=== PATIENT | female | born 1975 | race African-American/Black ===

== ENCOUNTER 2016-11-21 13:39 | Outpatient (CLI) | payer BC ==
--- NOTE | 2016-11-21 14:15 | Mammography Report ---
Bilateral mammogram: Compared to 11/23/15. CAD study utilized. Findings: Heterogeneous breast parenchyma bilaterally. No mass or microcalcification. Benign calcifications. Benign axillary nodes. Impression: Benign findings. Annual followup recommended. BI-RADS CATEGORY: 2 = Benign ACR BI-RADS MAMMOGRAPHIC CODES: 0 = Needs additional imaging evaluation; 1 = Negative; 2 = Benign; 3 = Probably benign; 4 = Suspicious; 5 = Malignant; 6 = Known biopsy-proven malignancy COMMENT: 1. Dense breast tissue, i.e., adenosis, fibrocystic changes, etc., may obscure an underlying neoplasm. 2. Approximately 10% of cancers are not detected with mammography. 3. A negative mammography report should not delay biopsy if a clinically suspicious mass is present. COMMENT: Patient follow-up letters are generated in [employer].
== END 2016-11-21 13:40 | disposition home or self-care (01) ==
LOC: MAMMO 13:39
PROVIDERS: ATTEND Surgery
DX: Z12.31 Encounter for screening mammogram for malignant neoplasm of breast (principal)
CPT/HCPCS: 77067; G0202

== ENCOUNTER 2017-05-05 16:54 | Outpatient (CLI) | payer BC | END 2017-05-05 16:55 | disposition home or self-care (01) | LOC: CARD 16:54 | PROVIDERS: ATTEND Internal Medicine | DX: Z00.01 Encounter for general adult medical examination with abnormal findings (principal); R07.9 Chest pain, unspecified | CPT/HCPCS: 93005; 93010 ==

== ENCOUNTER 2017-11-08 15:27 | Outpatient (CLI) | payer BC | END 2017-11-08 15:28 | disposition home or self-care (01) | LOC: CARD 15:27 | PROVIDERS: ATTEND Internal Medicine | DX: R07.9 Chest pain, unspecified (principal) | CPT/HCPCS: 93005; 93010 ==

== ENCOUNTER 2017-11-22 14:25 | Outpatient (CLI) | payer BC ==
--- NOTE | 2017-11-22 15:28 | Mammography Report ---
BILATERAL MAMMOGRAM: FINDINGS: The breast tissue is heterogeneously dense, which could obscure detection of small masses (approximately 50%-75% glandular). No mass, distortion, suspicious calcification, or skin change is seen. No interval change when compared to prior exam in October 2016. CAD was utilized. IMPRESSION: Negative mammogram. There is no mammographic evidence of malignancy. RECOMMENDATION: Follow-up per ACS guidelines. BI-RADS CATEGORY: 1 = Negative ACR BI-RADS MAMMOGRAPHIC CODES: 0 = Needs additional imaging evaluation; 1 = Negative; 2 = Benign; 3 = Probably benign; 4 = Suspicious; 5 = Malignant; 6 = Known biopsy-proven malignancy COMMENT: 1. Dense breast tissue, i.e., adenosis, fibrocystic changes, etc., may obscure an underlying neoplasm. 2. Approximately 10% of cancers are not detected with mammography. 3. A negative mammography report should not delay biopsy if a clinically suspicious mass is present. COMMENT: Patient follow-up letters are generated in [employer].
== END 2017-11-22 14:26 | disposition home or self-care (01) ==
LOC: MAMMO 14:25
PROVIDERS: ATTEND Obstetrics & Gynecology
DX: Z12.31 Encounter for screening mammogram for malignant neoplasm of breast (principal)
CPT/HCPCS: 77067

== ENCOUNTER 2017-12-06 07:01 | Outpatient (CLI) | payer BC ==
--- NOTE | 2017-12-06 10:26 | Treadmill Report ---
INDICATION: Chest pain. ORDERING PHYSICIAN: Mitchel Strong MD After obtaining written consent, the patient was brought to the stress lab area. The patient underwent a treadmill stress [place] protocol without complications. The patient exercised for 10 minutes without any evidence of ischemic EKG changes. There was no report of limiting chest pain or shortness of breath. The Jorge treadmill score is +10 indicating a low risk treadmill stress test, associated with an adverse cardiovascular events rate of less than 1% in the next 1 year. The patient did achieve 100% of her maximal age predicted heart rate. CONCLUSION: This is a normal treadmill stress test. JOB# [id number] ANDREA/GERARDO
== END 2017-12-06 07:02 | disposition home or self-care (01) ==
LOC: CARD 07:01
PROVIDERS: ATTEND Internal Medicine
DX: R07.2 Precordial pain (principal)
CPT/HCPCS: 93017

== ENCOUNTER 2018-11-28 13:17 | Outpatient (CLI) | payer BC ==
--- NOTE | 2018-11-28 14:21 | Mammography Report ---
BILATERAL MAMMOGRAM: FINDINGS: The breast tissue is heterogeneously dense, which could obscure detection of small masses (approximately 50%-75% glandular). No mass, distortion, suspicious calcification, or skin change is seen. No significant changes when compared to prior exams dating back to October 2016. CAD was utilized. IMPRESSION: Negative mammogram. There is no mammographic evidence of malignancy. RECOMMENDATION: Follow-up per ACS guidelines. BI-RADS CATEGORY: 1 = Negative ACR BI-RADS MAMMOGRAPHIC CODES: 0 = Needs additional imaging evaluation; 1 = Negative; 2 = Benign; 3 = Probably benign; 4 = Suspicious; 5 = Malignant; 6 = Known biopsy-proven malignancy COMMENT: 1. Dense breast tissue, i.e., adenosis, fibrocystic changes, etc., may obscure an underlying neoplasm. 2. Approximately 10% of cancers are not detected with mammography. 3. A negative mammography report should not delay biopsy if a clinically suspicious mass is present. COMMENT: Patient follow-up letters are generated in [employer].
== END 2018-11-28 13:18 | disposition home or self-care (01) ==
LOC: MAMMO 13:17
PROVIDERS: ATTEND Obstetrics & Gynecology
DX: Z12.31 Encounter for screening mammogram for malignant neoplasm of breast (principal)
CPT/HCPCS: 77067

== ENCOUNTER 2019-01-18 08:47 | Outpatient (CLI) | payer BC ==
--- NOTE | 2019-01-18 10:05 | Mammography Report ---
RIGHT DIGITAL DIAGNOSTIC MAMMOGRAM with CAD and RIGHT BREAST ULTRASOUND: 01/18/19 08:47:00 CLINICAL: A recent right palpable breast lump which has appeared since her recent screening mammogram. The patient states that it is less prominent than when she first felt it. COMPARISON:11/28/18 screening mammogram FINDINGS: The breast is heterogeneously dense, which may obscure small masses.No mass, architectural distortion or suspicious calcifications. No mammographic finding at a palpable marker at 6 o'clock near the nipple. Targeted ultrasound of the right breast in the area of the palpable marker demonstrated normal fibroglandular structures with no mass, cyst or shadowing. IMPRESSION: Negative mammogram and negative targeted right breast ultrasound. BI-RADS CATEGORY: 1 - - Negative RECOMMENDATION: Clinical followup and routine mammographic screening in one year. ACR BI-RADS MAMMOGRAPHIC CODES: 0 = Needs additional imaging evaluation; 1 = Negative; 2 = Benign; 3 = Probably benign; 4 = Suspicious; 5 = Malignant; 6 = Known biopsy-proven malignancy COMMENT: 1. Dense breast tissue, i.e., adenosis, fibrocystic changes, etc., may obscure an underlying neoplasm. 2. Approximately 10% of cancers are not detected with mammography. 3. A negative mammography report should not delay biopsy if a clinically suspicious mass is present. COMMENT: Patient follow-up letters are generated by our [employer] application.
== END 2019-01-18 08:48 | disposition home or self-care (01) ==
LOC: MAMMO 08:47
PROVIDERS: ATTEND Obstetrics & Gynecology
DX: N63.13 Unspecified lump in the right breast, lower outer quadrant (principal)

== ENCOUNTER 2019-06-10 14:06 | Emergency (ER) | payer BC | END 2019-06-10 14:10 | disposition left against medical advice (07) | LOC: ED 14:06 | DX: R50.9 Fever, unspecified (principal); Z53.21 Procedure and treatment not carried out due to patient leaving prior to being seen by health care provider ==

== ENCOUNTER 2019-12-09 14:07 | Outpatient (CLI) | payer BC ==
--- NOTE | 2019-12-09 16:08 | Mammography Report ---
DIGITAL SCREENING MAMMOGRAM WITH CAD, 12/09/2019 INDICATION: Routine screening mammography. TECHNIQUE: Digital bilateral 2D mammography was obtained in the craniocaudal and mediolateral obliq ue projections. This examination was interpreted with the benefit of Computer-Aided Detection analysi s. COMPARISON: 11/28/2018 FINDINGS: Breast Density: The breasts are heterogeneously dense, which may obscure small masses. There is no evidence of dominant mass, suspicious calcifications or architectural distortion in eithe r breast. IMPRESSION: No mammographic evidence of malignancy. Follow up recommendation: Routine yearly BI-RADS Category 1: Negative. A "normal" or negative report should not discourage follow up or biopsy of a clinically significant f inding. A written summary of these findings will be mailed to the patient. The patient will be entered into a mammography reporting system which will generate a reminder letter for the patient's next appointmen t at the appropriate interval. The [employer] recommends yearly mammograms starting at age 40 and continuing as l arturo as a woman is in good health. Breast MRI is recommended for women with an approximate 20-25% or greater lifetime risk of breast cancer, including women with a strong family history of breast or ova jonathan cancer or who have been treated for Hodgkin's disease. Signer Name: Timbo Monae MD Signed: 12/09/2019 4:04 PM Workstation Name: [id number]
== END 2019-12-09 14:08 | disposition home or self-care (01) ==
LOC: MAMMO 14:07
PROVIDERS: ATTEND Obstetrics & Gynecology
DX: Z12.31 Encounter for screening mammogram for malignant neoplasm of breast (principal)
CPT/HCPCS: 77067

== ENCOUNTER 2020-09-03 08:24 | Outpatient (CLI) | payer BC ==
[2020-09-03 08:52] LABS: Basophils % (Auto) 0.5 % (0.0-1.8); Eosinophils # (Auto) 0.1 K/mm3 (0.0-0.4); Hematocrit 35.9 % (30.3-42.9); Hemoglobin 11.9 gm/dl (10.1-14.3); Lymphocytes # (Auto) 2.7 K/mm3 (1.2-5.4); Lymphocytes % (Auto) 36.5 % (13.4-35.0); Mean Corpuscular HGB Conc 33 % (30-34); Monocytes # (Auto) 0.6 K/mm3 (0.0-0.8); Monocytes % (Auto) 7.4 % (0.0-7.3); Platelet Count 320 K/mm3 (140-440); Red Blood Count 5.81 M/mm3 (3.65-5.03); Red Cell Distribution Width 15.4 % (13.2-15.2)
[2020-09-03 09:10] LABS: Mean Corpuscular Volume 62 fl (79-97)
[2020-09-03 09:19] LABS: Alanine Aminotransferase 13 units/L (7-56); Albumin 4.1 g/dL (3.9-5); Blood Urea Nitrogen 10 mg/dL (7-17); Calcium 8.9 mg/dL (8.4-10.2); Chol/HDL Ratio 2.55 %; HDL Cholesterol 70 mg/dL (40-59); Hemolysis Index 0; LDL Cholesterol,Direct 100 mg/dL (50-130)
[2020-09-03 09:29] LABS: BUN/Creatinine Ratio 14
== END 2020-09-03 08:25 | disposition home or self-care (01) ==
LOC: CARD 08:24
PROVIDERS: ATTEND Internal Medicine
DX: Z00.00 Encounter for general adult medical examination without abnormal findings (principal)
CPT/HCPCS: 36415; 80053; 80061; 85025; 93005

== ENCOUNTER 2020-12-09 13:21 | Outpatient (CLI) | payer BC ==
--- NOTE | 2020-12-09 14:14 | XRay Report ---
CHEST 2 VIEWS INDICATION / CLINICAL INFORMATION: COUGH. COMPARISON: Chest 2 views from 11/04/2015. FINDINGS: SUPPORT DEVICES: None. HEART / MEDIASTINUM: No significant abnormality. LUNGS / PLEURA: Clear lungs. No significant pleural effusion. No pneumothorax. ADDITIONAL FINDINGS: No significant additional findings. IMPRESSION: 1. No significant abnormality of the chest. Signer Name: Darshan Norton MD Signed: 12/09/2020 2:10 PM Workstation Name: [id number]
== END 2020-12-09 13:22 | disposition home or self-care (01) ==
LOC: XRAY 13:21
PROVIDERS: ATTEND Internal Medicine
DX: R05 Cough (principal)
CPT/HCPCS: 71046

== ENCOUNTER 2021-01-14 13:43 | Outpatient (CLI) | payer BC ==
--- NOTE | 2021-01-14 15:30 | Mammography Report ---
DIGITAL SCREENING MAMMOGRAM WITH CAD, 01/14/2021 CLINICAL INFORMATION / INDICATION: Routine screening mammography. TECHNIQUE: Digital bilateral 2D mammography was obtained in the craniocaudal and mediolateral obliqu e projections. This examination was interpreted with the benefit of Computer-Aided Detection analysis . COMPARISON: 12/09/2019, 01/16/2019, 11/28/2018, 11/22/2017 FINDINGS: Breast Density: There are scattered areas of fibroglandular density. No dominant mass, suspicious calcifications, or architectural distortion in either breast. IMPRESSION: No mammographic evidence of malignancy. Follow up recommendation: Routine yearly BI-RADS Category 1: Negative. A "normal" or negative report should not discourage follow up or biopsy of a clinically significant f inding. A written summary of these findings will be mailed to the patient. The patient will be entered into a mammography reporting system which will generate a reminder letter for the patient's next appointmen t at the appropriate interval. The [employer] recommends yearly mammograms starting at age 40 and continuing as l arturo as a woman is in good health. Breast MRI is recommended for women with an approximate 20-25% or greater lifetime risk of breast cancer, including women with a strong family history of breast or ova jonathan cancer or who have been treated for Hodgkin's disease. Signer Name: Sarah Velez MD Signed: 01/14/2021 3:25 PM Workstation Name: [email or web address]
== END 2021-01-14 13:44 | disposition home or self-care (01) ==
LOC: MAMMO 13:43
PROVIDERS: ATTEND Obstetrics & Gynecology
DX: Z12.31 Encounter for screening mammogram for malignant neoplasm of breast (principal)
CPT/HCPCS: 77067

== ENCOUNTER 2022-01-27 13:48 | Outpatient (CLI) | payer BC ==
--- NOTE | 2022-01-27 15:53 | Mammography Report ---
DIGITAL SCREENING MAMMOGRAM WITH CAD, 01/27/2022 CLINICAL INFORMATION / INDICATION: Routine screening mammography. TECHNIQUE: Digital bilateral 2D mammography was obtained in the craniocaudal and mediolateral obliqu e projections. This examination was interpreted with the benefit of Computer-Aided Detection analysis . COMPARISON: 01/14/2021, 12/09/2019, 01/18/2019 FINDINGS: Breast Density: There are scattered areas of fibroglandular density. No dominant mass, suspicious calcifications, or architectural distortion in either breast. There has been no significant interval change. IMPRESSION: No mammographic evidence of malignancy. Follow up recommendation: Routine yearly BI-RADS Category 1: NEGATIVE A "normal" or negative report should not discourage follow up or biopsy of a clinically significant f inding. A written summary of these findings will be mailed to the patient. The patient will be entered into a mammography reporting system which will generate a reminder letter for the patient's next appointmen t at the appropriate interval. The [employer] recommends yearly mammograms starting at age 40 and continuing as l arturo as a woman is in good health. Breast MRI is recommended for women with an approximate 20-25% or greater lifetime risk of breast cancer, including women with a strong family history of breast or ova jonathan cancer or who have been treated for Hodgkin's disease. Signer Name: Sarah Velez MD Signed: 01/27/2022 3:49 PM Workstation Name: [id number]
== END 2022-01-27 13:49 | disposition home or self-care (01) ==
LOC: MAMMO 13:48
PROVIDERS: ATTEND Obstetrics & Gynecology
DX: Z12.31 Encounter for screening mammogram for malignant neoplasm of breast (principal)
CPT/HCPCS: 77067